=== PATIENT | male | born 1970 | race Two or more races ===

== ENCOUNTER 2022-02-03 | Emergency (ER) | payer MEDICAID, OTHER ==
[~2022-02-03] VITALS: Ht 170.2 cm; Wt 86.2 kg
[2022-02-03 00:03] VITALS: BP 173/111
[2022-02-03] MEDS ORDERED: AMOX500T86 PO (23:21)
[2022-02-03] MEDS ORDERED: PERCOT PO (23:21)
== END 2022-02-03 02:48 | disposition left against medical advice (07) ==
LOC: ER 00:05
DX: S61.211A Laceration without foreign body of left index finger without damage to nail, initial encounter (principal); Z53.21 Procedure and treatment not carried out due to patient leaving prior to being seen by health care provider; W26.8XXA Contact with other sharp object(s), not elsewhere classified, initial encounter; Y93.89 Activity, other specified; Y92.89 Other specified places as the place of occurrence of the external cause; Y99.8 Other external cause status

== ENCOUNTER 2022-02-03 19:29 | Emergency (ER) | payer MEDICAID ==
[~2022-02-03] VITALS: Ht 170.2 cm; Wt 81.6 kg
[2022-02-03] MEDS ORDERED: AMOXICILLIN/CLAVUL 875 MG TAB PO ONE (20:45)
[2022-02-03] MEDS ORDERED: TETANUS-DIPTH-ACEL PERTUSSIS 0.5ML SYR Tdap IM ONE (20:45)
[2022-02-03] MEDS ORDERED: LIDOCAINE 1% HCL (LOCAL ANESTH.) INJ 20ML MDV ID ONE (20:45)
[2022-02-03] MEDS ORDERED: OXYCODONE W/ ACETAMINOPHEN 5/325MG TABLET PO ONE (20:45)
[2022-02-03] MEDS ORDERED: PERCOT PO (23:21)
[2022-02-03] MEDS ORDERED: AMOX500T86 PO (23:21)
[2022-02-03 23:28] VITALS: BP 139/101
== END 2022-02-03 23:37 | disposition home or self-care (01) ==
LOC: ER 19:29
DX: S61.412A Laceration without foreign body of left hand, initial encounter (principal); I10 Essential (primary) hypertension; W26.0XXA Contact with knife, initial encounter; Y93.89 Activity, other specified; Y92.89 Other specified places as the place of occurrence of the external cause; Y99.8 Other external cause status
CPT/HCPCS: 73120; 90471; 90715